=== PATIENT | female | born 1985 | race Caucasian/White ===

== ENCOUNTER 2018-12-29 20:25 | Emergency (ER) | payer MEDICARE ==
[~2018-12-29] VITALS: Ht 144.8 cm; Wt 104.5 kg
[2018-12-29 20:27] VITALS: Ht 144.8 cm; Wt 104.5 kg
[2018-12-29 22:48] LABS: BASOPHILS 0.3 % (0-2); EOSINOPHILS 1.1 % (0-7); HEMATOCRIT 40.2 % (36.0-48.0); HEMOGLOBIN 12.8 g/dL (12-16); IMMATURE GRANULOCYTES 0.3 % (0-5); LYMPHOCYTES 25.7 % (15-50); MCH 27.6 pg (26.0-34.0); MCHC 31.8 g/dL (31.0-37.0); MCV 86.8 fL (80.0-100.0); MEAN PLATELET VOLUME 10.3 fL (7.4-10.4); MONOCYTES 3.3 % (2-11); NEUTROPHILS 69.3 % (40-80); PLATELET COUNT 292 10x3/uL (130-400); RBC 4.63 10x6/uL (4.00-5.40); RDW 15.7 % (11.5-14.5); WBC 8.8 10x3/uL (4.8-10.8)
[2018-12-29] MEDS ORDERED: BUTALB-APAP-CA1 EACH PO (23:00)
[2018-12-29 23:11] LABS: ALBUMIN 3.4 g/dL (3.4-5.0); ALKALINE PHOSPHATASE 87 U/L (46-116); ALT (SGPT) 32 U/L (10-68); BILIRUBIN - TOTAL 0.31 mg/dL (0.2-1.3); CALC OSMOLALITY 278 mosm/kg (275-300); CALCIUM 8.9 mg/dL (8.5-10.1); CARBON DIOXIDE 27.4 mmol/L (21.0-32.0); CHLORIDE - SERUM 102 mmol/L (98-107); CREATININE - SERUM 0.8 mg/dL (0.6-1.3); GLUCOSE 146 mg/dL (74-106); POTASSIUM - SERUM 3.7 mmol/L (3.5-5.1); PROTEIN - SERUM 7.5 g/dL (6.4-8.2); SODIUM 139 mmol/L (136-145); UREA NITROGEN 8 mg/dL (7-18); eGFR NON AFRICAN AMERICAN 87 mL/min (90-120)
[2018-12-29 23:56] VITALS: BP 128/76
== END 2018-12-29 23:58 | disposition home or self-care (01) ==
LOC: EDBD 20:25 → D.ER 20:25
PROVIDERS: Family Medicine
DX: R56.9 Unspecified convulsions (principal); S16.1XXA Strain of muscle, fascia and tendon at neck level, initial encounter; W18.30XA Fall on same level, unspecified, initial encounter; Y93.89 Activity, other specified; Y92.019 Unspecified place in single-family (private) house as the place of occurrence of the external cause; S00.03XA Contusion of scalp, initial encounter